=== PATIENT | female | born 1935 | race Caucasian/White ===

== ENCOUNTER 2023-04-21 06:19 | Emergency (ER) | payer MEDICARE ==
[~2023-04-21] VITALS: Ht 160 cm; Wt 82.0 kg
[2023-04-21] VITALS (8 sets, daily range): BP systolic 140–168; BP diastolic 74–93
[~2023-04-21 06:19] MED LIST: AMLODIPINE5 MG PO; ASPIRIN325 MG PO; AUGMENTIN500TAB PO; AZITHROMYCIN500 MG PO; BACTRIM DS1 TAB PO; BAYER ASPIRIN E81 MG PO; CALAN SR180 MG OR; CETIRIZ/PSE1 TAB PO; CIPROFLOXACN500 MG PO; CLONIDINE0.1 MG PO; CLOPIDOGREL75 MG PO; COLACE100 MG PO; FERR SULFATE325 MG PO; FLONASE NASAL50 MCG; FLUARIX QUADRIV1 IN1 IM; FREESTYLELITE100 SC; HYDRALAZINE25 MG PO; HYDROCHLOROT25 MG OR; LISINOP/HCTZ1 TA1 PO; LISINOPRIL10 MG PO; LISINOPRIL20 MG OR; LISINOPRIL30 MG PO; LISINOPRIL40 MG PO; METFORMIN HCL1000 MG PO; METFORMIN1000 MG OR; METFORMIN500 MG PO; NAPROSYN500 MG PO; OMEPRAZOLE20 M2 PO; ONDANSETRON4 MG PO; PERCOCET 5/325M1 TAB PO; PLAVIX75 MG PO; PRAVASTATIN SOD20 MG PO; PROAIR HFA IN; ROBITUSSIN AC10 ML PO; SENNA/DSS1 TAB PO; SIMVASTATIN PO; SIMVASTATIN10 MG PO; SIMVASTATIN20 MG PO; VERAPAMIL240 M1 PO; VERAPAMIL240 M3 PO; WAL-FEX D 1212 HOUR PO; ZOCOR20 M1 PO
[2023-04-21 07:57] LABS: BASO% 0.5 % (0-3); EOS% 1.3 % (0-8); HEMATOCRIT 40.5 % (37.0-47.0); HEMOGLOBIN 12.6 g/dl (12.0-16.0); IMMATURE GRANULOCYTES 0.3 % (0.0-5.0); LYMPH% 11.6 % (15-41); MEAN CORPUSCULAR HGB CONC 31.1 g/dL CAL (32.0-36.0); MONO% 5.8 % (2-13); NEUT# 8.15 thou/uL (2.00-7.15); NEUT% 80.5 % (42-76); RED BLOOD COUNT 4.2 mill/uL (4.20-5.60); RED CELL DISTRI WIDTH 12.6 % (11.5-15.5)
[2023-04-21 07:59] LABS: MEAN CELL VOLUME 96.4 fL CALC (80.0-100.0)
[2023-04-21 08:17] LABS: ALBUMIN 4.6 g/dL (3.2-5.0); ALKALINE PHOSPHATASE 53 u/l (38-126); BILIRUBIN, TOTAL 0.5 mg/dL (0.02-1.3); BUN 15 mg/dL (8-23); BUN/CREATININE RATIO 16 (12-20 (CALC)); CHLORIDE 101 mmol/l (95-108); CREATININE 0.9 mg/dL (0.5-1.0); GFR FOR AFR.AMER. > 60 ML/MIN (>=60 (CALC)); GFR OTHER RACES 59 ML/MIN (>=60 (CALC)); LIPASE 69 u/l (23-300); POTASSIUM 4.4 mmol/l (3.5-5.1); SGOT/AST 32 u/l (9-36); SODIUM 135 mmol/l (137-146); TOTAL PROTEIN 7.5 g/dL (6.3-8.2)
[2023-04-21 08:18] LABS: ANION GAP 17 (6-22 (CALC)); CARBON DIOXIDE 21 mmol/l (22-30)
[2023-04-21 09:51] LABS: URINE BILIRUBIN - DIPSTICK NEGATIVE (NEGATIVE); URINE BLOOD DIPSTICK NEGATIVE (NEGATIVE); URINE COLOR YELLOW; URINE GLUCOSE - DIPSTICK NEGATIVE (NEGATIVE); URINE KETONE NEGATIVE (NEGATIVE); URINE PH 6.5 (4.5-8.0); URINE PROTEIN - DIPSTICK NEGATIVE (NEG-TRACE); URINE UROBILINOGEN - DIPSTICK 0.2 E.U./dL (0.2)
[2023-04-21 09:52] LABS: URINE LEUK ESTERASE MODERATE (NEGATIVE); URINE NITRITE - DIPSTICK NEGATIVE (Negative)
[2023-04-21 09:53] LABS: URINE EPITHELIAL CELLS MODERATE EPI/hpf (0-FEW)
[2023-04-21 09:54] LABS: URINE BACTERIA FEW hpf
[2023-04-21] MEDS ORDERED: OMNI-PAC300 MG PO (10:07)
== END 2023-04-21 10:42 | disposition home or self-care (01) ==
LOC: ED 06:19
PROVIDERS: Family Medicine
DX: N39.0 Urinary tract infection, site not specified (principal); I10 Essential (primary) hypertension; E11.9 Type 2 diabetes mellitus without complications; E66.9 Obesity, unspecified; Z79.84 Long term (current) use of oral hypoglycemic drugs; Z20.822 Contact with and (suspected) exposure to COVID-19
CPT/HCPCS: Q9967